=== PATIENT | male | born 1960 | race Caucasian/White ===

== ENCOUNTER 2017-03-09 02:40 | Inpatient (IN) | payer OTHER ==
[2017-03-09] MEDS ORDERED: NS 1,000 ML IV ONE ×3 (02:46→17:30)
[2017-03-09] MEDS ORDERED: ONDANSETRON 4 MG/2 ML VIAL IVP ONE (02:46)
--- NOTE | 2017-03-09 02:49 | EDPHY ---
H & P HPI/ROS: HPI CHIEF COMPLAINT: Left flank pain, nausea, vomiting HISTORY OF PRESENT ILLNESS: This patient very pleasant 56-year-old male, significant past medical history for multiple myeloma, BPH, kidney stones, is visiting from out of town from [place] he staying at a local hotel, he presents emergency room with acute onset of left flank pain around 10:00 p.m. last night. Sharp stabbing radiates into his left abdomen. Denies cyclic pain or trouble urinating. Has not seen blood in his urine. He noticed some pain yesterday but not severe. This pain came very intense this evening had to call 911 arrived to the emergency room. Currently he received 100 mcg IV fentanyl in route, 4 Zofran is feeling better. Past Medical History: BPH, multiple myeloma, kidney stones, hypertension Past Surgical History: No recent surgical history Social History: Smokes marijuana, denies other illicit drugs, denies alcohol or tobacco Family History: Noncontributory ROS REVIEW OF SYSTEMS: A comprehensive 10 point review of systems is otherwise negative aside from elements mentioned in the history of present illness. Exam Constitutional appears well nontoxic, triage nursing summary reviewed, vital signs reviewed, awake/alert. Eyes normal conjunctivae and sclera, EOMI, PERRLA. HENT normal inspection, atraumatic, moist mucus membranes, no epistaxis, neck supple/ no meningismus, no raccoon eyes. Respiratory clear to auscultation bilaterally, normal breath sounds, no respiratory distress, no wheezing. Cardiovascular rate normal, regular rhythm, no murmur, no edema, distal pulses normal. Gastrointestinal soft, non-tender, no rebound, no guarding, normal bowel sounds, no distension, no pulsatile mass. Genitourinary no CVA tenderness. Musculoskeletal no midline vertebral tenderness, full range of motion, no calf swelling, no tenderness of extremities, no meningismus, good pulses, neurovascularly intact. Skin pink, warm, & dry, no rash, skin atraumatic. Neurologic awake, alert and oriented x 3, AAOx3, moves all 4 extremities equally, motor intact, sensory intact, CN II-XII intact, normal cerebellar, normal vision, normal speech. Psychiatric normal mood/affect. Heme/Lymph/Immune no lymphadenopathy. Differential diagnosis includes but is not limited to and in no particular order : Bowel obstruction, appendicitis, gallbladder disease, diverticulitis, colitis , enteritis, perforated viscus, gastritis, GERD, esophagitis, urinary tract infection, pyelonephritis, kidney stones Medical Decision Making: Plan for this patient IV establishment, IV fluid bolus 1 L normal saline, IV Zofran for nausea, IV fentanyl as needed for pain control, urinalysis, abdominal blood work, CT abdomen pelvis without contrast to help delineate left severe flank pain and evaluate for kidney stone. Re-evaluation: CT scan of the abdomen pelvis without IV contrast. The results of the study are shows extensive amount of kidney stones, he has up to 15 stones in his bladder numerous sizes, he also has 6 mm proximal left ureteral stone with mild obstructive uropathy. Additionally this patient has pulmonary nodules need outpatient follow-up through his primary care doctor I have notified him of this. The study was read by Dr. Elias Barney I viewed the images myself on the PACS system. 0320AM: Upon review of this patient's blood work this patient's creatinine is 3.9 with a BUN over 50. I did review this blood study with the patient. His normal creatinine is in 1.7 range. Due to this acute kidney injury and kidney stone left-sided 6 mm mild ureter obstruction. Patient need to be admitted the hospital for hydration. FINAL DIAGNOSIS, FLANK PAIN FROM KIDNEY STONES, MULTIPLE KIDNEY STONES, HYDROURETER, ACUTE KIDNEY INJURY, PULMONARY NODULES. DR. LIM HAS ACCEPTED THE ADMISSION FOR THIS PATIENT Source: Patient, EMS Constitutional: Initial Vital Signs Temperature (C) 36.7 C 03/09/17 02:53 Heart Rate 79 03/09/17 02:53 Respiratory Rate 16 03/09/17 02:53 Blood Pressure 184/101 H 03/09/17 02:53 O2 Sat (%) 97 03/09/17 02:53 O2 Delivery Mode Room Air O2 (L/minute) 2 Allergies/Adverse Reactions: No Known Allergies Allergy (Unverified 03/09/17 02:53) Home Medications: Medication Instructions Recorded Amlodipine Besylate 03/09/17 Aspirin 03/09/17 Ezetimibe 03/09/17 Hydrocodone/APAP 5/325 [[place] 1 - 2 tab PO Q4H PRN #14 tab 03/09/17 5/325] Icosapent Ethyl 03/09/17 Metoprolol Tartrate 03/09/17 Ondansetron HCl [Zofran] 4 mg PO Q4-6PRN PRN #10 tablet 03/09/17 Sertraline HCl 03/09/17 Tadalafil 03/09/17 Tamsulosin HCl [Flomax] 0.4 mg PO DAILY #10 cap 03/09/17 Valacyclovir 03/09/17 Medical Decision Making - Data Points Laboratory Results: Laboratory Results 03/09/17 02:30 03/09/17 02:30 03/09/17 03/09/17 03/09/17 03:00 02:50 02:30 WBC RBC Hgb Hct MCV MCH MCHC RDW Plt Count MPV Neut % (Auto) Lymph % (Auto) Placer % (Auto) Eos % (Auto) Baso % (Auto) Nucleat RBC Rel Count Absolute Neuts (auto) Absolute Lymphs (auto) Absolute Monos (auto) Absolute Eos (auto) Absolute Basos (auto) Absolute Nucleated RBC Immature Gran % Immature Gran # PT INR APTT VBG Lactic Acid 1.1 mmol/L mmol/L (0.7-2.1) Sodium 137 mEq/L mEq/L (134-144) Potassium 4.5 mEq/L mEq/L (3.5-5.2) Chloride 101 mEq/L mEq/L (97-110) Carbon Dioxide 23 mEq/l mEq/l (22-31) Anion Gap 13 mEq/L mEq/L (8-16) BUN 56 mg/dL H mg/dL (7-23) Creatinine 3.9 mg/dL H mg/dL (0.7-1.3) Estimated GFR 16 Glucose 144 mg/dL H mg/dL (70-100) Calcium 10.0 mg/dL mg/dL (8.5-10.4) Total Bilirubin 1.3 mg/dL mg/dL (0.1-1.4) Conjugated Bilirubin 0.5 mg/dL mg/dL (0.0-0.5) Unconjugated Bilirubin 0.8 mg/dL mg/dL (0.0-1.1) AST 27 IU/L IU/L (17-59) ALT 32 IU/L IU/L (21-72) Alkaline Phosphatase 94 IU/L IU/L (38-126) Total Protein 7.4 g/dL g/dL (6.3-8.2) Albumin 4.7 g/dL g/dL (3.5-5.0) Lipase 317.0 IU/L H IU/L (23-300) Urine Color PALE YELLOW Urine Appearance CLEAR Urine pH 6.0 (5.0-7.5) Ur Specific [place] 1.010 (1.002-1.030) Urine Protein 3+ H (NEGATIVE) Urine Ketones TRACE H (NEGATIVE) Urine Blood 1+ H (NEGATIVE) Urine Nitrate NEGATIVE (NEGATIVE) Urine Bilirubin NEGATIVE (NEGATIVE) Urine Urobilinogen NEGATIVE EU EU (0.2-1.0) Ur Leukocyte Esterase NEGATIVE (NEGATIVE) Urine RBC 3-5 /hpf H /hpf (0-3) Urine WBC 1-3 /hpf /hpf (0-3) Ur Epithelial Cells Not Reported Urine Bacteria TRACE /hpf H /hpf (NONE SEEN) Urine Mucus TRACE /lpf /lpf (NONE-1+) Urine Glucose 1+ H (NEGATIVE) 03/09/17 03/09/17 02:30 02:30 WBC 13.02 10^3/uL H 10^3/uL (3.80-9.50) RBC 5.79 10^6/uL 10^6/uL (4.40-6.38) Hgb 17.6 g/dL H g/dL (13.7-17.5) Hct 48.8 % % (40.0-51.0) MCV 84.3 fL fL (81.5-99.8) MCH 30.4 pg pg (27.9-34.1) MCHC 36.1 g/dL g/dL (32.4-36.7) RDW 13.6 % % (11.5-15.2) Plt Count 126 10^3/uL L 10^3/uL (150-400) MPV 10.1 fL fL (8.7-11.7) Neut % (Auto) 85.5 % H % (39.3-74.2) Lymph % (Auto) 9.6 % L % (15.0-45.0) Placer % (Auto) 3.9 % L % (4.5-13.0) Eos % (Auto) 0.2 % L % (0.6-7.6) Baso % (Auto) 0.3 % % (0.3-1.7) Nucleat RBC Rel Count 0.0 % % (0.0-0.2) Absolute Neuts (auto) 11.12 10^3/uL H 10^3/uL (1.70-6.50) Absolute Lymphs (auto) 1.25 10^3/uL 10^3/uL (1.00-3.00) Absolute Monos (auto) 0.51 10^3/uL 10^3/uL (0.30-0.80) Absolute Eos (auto) 0.03 10^3/uL 10^3/uL (0.03-0.40) Absolute Basos (auto) 0.04 10^3/uL 10^3/uL (0.02-0.10) Absolute Nucleated RBC 0.00 10^3/uL 10^3/uL (0-0.01) Immature Gran % 0.5 % % (0.0-1.1) Immature Gran # 0.07 10^3/uL 10^3/uL (0.00-0.10) PT 13.5 SEC SEC (12.0-15.0) INR 1.04 (0.83-1.16) APTT 24.4 SEC SEC (23.0-38.0) VBG Lactic Acid Sodium Potassium Chloride Carbon Dioxide Anion Gap BUN Creatinine Estimated GFR Glucose Calcium Total Bilirubin Conjugated Bilirubin Unconjugated Bilirubin AST ALT Alkaline Phosphatase Total Protein Albumin Lipase Urine Color Urine Appearance Urine pH Ur Specific [place] Urine Protein Urine Ketones Urine Blood Urine Nitrate Urine Bilirubin Urine Urobilinogen Ur Leukocyte Esterase Urine RBC Urine WBC Ur Epithelial Cells Urine Bacteria Urine Mucus Urine Glucose Medications Given: Discontinued Medications Fentanyl (Sublimaze) 50 mcg IVP EDNOW ONE Stop: 03/09/17 03:05 Last Admin: 03/09/17 03:10 Dose: 50 mcg Sodium Chloride (Ns) 1,000 mls @ 0 mls/hr IV ONCE ONE; Wide Open PRN Reason: Protocol Stop: 03/09/17 02:47 Last Admin: 03/09/17 03:04 Dose: 1,000 mls Departure - Departure Disposition: [facility] Acute Clinical Impression: Kidney stones, Pulmonary nodules Condition: Good Instructions: Kidney Stones (ED), Renal Colic (ED), Flank Pain (ED), Pulmonary Nodules (ED) Additional Instructions: 1. You have a 6 mm left-sided kidney stone. 2. You have multiple kidney stones in your bladder. 3. You have pulmonary nodules that need to be followed up by your primary care doctor. 4. I do recommend that you follow up with Urology. 5. Make sure to drink lots of fluids stay well-hydrated. 6. Return emergency room if you have worsening pain, vomiting questions or concerns. Referrals: Patient,NotPresent [Primary Care Provider] - As per Instructions Prescriptions: Hydrocodone/APAP 5/325 [[place] 5/325] 1 - 2 tab PO Q4H PRN #14 tab PRN Reason: Pain, Moderate Ondansetron HCl [Zofran] 4 mg PO Q4-6PRN PRN #10 tablet PRN Reason: Nausea/Vomiting, Use 1st Tamsulosin HCl [Flomax] 0.4 mg PO DAILY #10 cap
[2017-03-09 03:04] LABS: COLOR PALE YELLOW; LEUKOCYTE ESTERASE,URINE NEGATIVE (NEGATIVE); NITRITE,URINE NEGATIVE (NEGATIVE)
[2017-03-09] MEDS ORDERED: fentaNYL 100 MCG/2 ML INJ IVP ONE (03:04)
[2017-03-09] MEDS ORDERED: fentaNYL 100 MCG/2 ML INJ ONE (03:05)
[2017-03-09 03:06] LABS: BACTERIA TRACE /hpf (NONE SEEN); MUCUS TRACE /lpf (NONE-1+)
[2017-03-09 03:08] LABS: % IMMATURE GRANULYOCYTES 0.5 % (0.0-1.1); ABSOLUTE IMMATURE GRANULOCYTES 0.07 10^3/uL (0.00-0.10); ADD DIFF? NO; ADD MORPH? NO; ADD SCAN? NO; ATYPICAL LYMPHOCYTE FLAG 0 (0-99); FRAGMENT RBC FLAG 0 (0-99); HEMATOCRIT 48.8 % (40.0-51.0); HEMOGLOBIN 17.6 g/dL (13.7-17.5); LEFT SHIFT FLG 0 (0-99); LIPEMIA HEMOLYSIS FLAG 90 (0-99); MEAN CELL HEMOGLOBIN 30.4 pg (27.9-34.1); MEAN CELL HEMOGLOBIN CONCENTR. 36.1 g/dL (32.4-36.7); MEAN CELL VOLUME 84.3 fL (81.5-99.8); MEAN PLATELET VOLUME 10.1 fL (8.7-11.7); PLATELET CLUMPS FLAG 0 (0-99); PLATELET COUNT 126 10^3/uL (150-400); RED BLOOD CELL COUNT 5.79 10^6/uL (4.40-6.38); RED CELL DISTRIBUTION WIDTH 13.6 % (11.5-15.2)
[2017-03-09 03:14] LABS: ALANINE AMINOTRANSFERASE 32 IU/L (21-72); ALBUMIN 4.7 g/dL (3.5-5.0); ALKALINE PHOSPHATASE 94 IU/L (38-126); ANION GAP 13 mEq/L (8-16); ASPARTATE AMINOTRANSFERASE 27 IU/L (17-59); BILIRUBIN,TOTAL 1.3 mg/dL (0.1-1.4); BILIRUBIN-CONJUGATED 0.5 mg/dL (0.0-0.5); BILIRUBIN-UNCONJUGATED 0.8 mg/dL (0.0-1.1); CARBON DIOXIDE 23 mEq/l (22-31); CHLORIDE 101 mEq/L (97-110); CREATININE 3.9 mg/dL (0.7-1.3); GLOMERULAR FILTRATION RATE 16; GLUCOSE 144 mg/dL (70-100); POTASSIUM 4.5 mEq/L (3.5-5.2); SODIUM 137 mEq/L (134-144); TOTAL PROTEIN 7.4 g/dL (6.3-8.2)
[2017-03-09 03:17] LABS: INR 1.04 (0.83-1.16); PROTIME(PATIENT) 13.5 SEC (12.0-15.0)
[2017-03-09 03:18] LABS: APTT 24.4 SEC (23.0-38.0)
[2017-03-09] MEDS ORDERED: HYDROmorphONE/DILAUDID 1 MG/ML SYR IVP ONE (03:42)
[2017-03-09] MEDS ORDERED: HYDROmorphONE/DILAUDID 1 MG/ML SYR ONE (03:44)
[2017-03-09] MEDS ORDERED: ONDANSETRON DISINTEGRATING 4 MG TAB PO PRN (05:08)
[2017-03-09] MEDS ORDERED: ONDANSETRON 4 MG/2 ML VIAL IVP PRN (05:08)
[2017-03-09] MEDS ORDERED: NALOXONE HCL 0.4 MG/ML INJ IVP PRN (05:10)
[2017-03-09] MEDS: oxyCODONE IR 5 MG TAB PO PRN ×3 (05:39→19:12)
[2017-03-09] MEDS: NS 1,000 ML IV SCH ×3 (05:40→20:10)
[2017-03-09 06:47] LABS: HEMATOCRIT 44.3 % (40.0-51.0); HEMOGLOBIN 16.1 g/dL (13.7-17.5); MEAN CELL HEMOGLOBIN 30.6 pg (27.9-34.1); MEAN CELL HEMOGLOBIN CONCENTR. 36.3 g/dL (32.4-36.7); MEAN CELL VOLUME 84.1 fL (81.5-99.8); RED BLOOD CELL COUNT 5.27 10^6/uL (4.40-6.38); RED CELL DISTRIBUTION WIDTH 13.4 % (11.5-15.2)
[2017-03-09 06:48] LABS: % IMMATURE GRANULYOCYTES 0.5 % (0.0-1.1); ABSOLUTE IMMATURE GRANULOCYTES 0.06 10^3/uL (0.00-0.10); ADD DIFF? NO; ADD MORPH? NO; ADD SCAN? NO; ATYPICAL LYMPHOCYTE FLAG 10 (0-99); FRAGMENT RBC FLAG 0 (0-99); LEFT SHIFT FLG 0 (0-99); LIPEMIA HEMOLYSIS FLAG 90 (0-99); MEAN PLATELET VOLUME 9.7 fL (8.7-11.7); PLATELET CLUMPS FLAG 0 (0-99); PLATELET COUNT 111 10^3/uL (150-400)
[2017-03-09] MEDS: ACETAMINOPHEN 325 MG TAB PO PRN (06:50)
[2017-03-09] MEDS: HEPARIN 5,000 UNIT/0.5 ML SYR SC SCH ×2 (07:17→13:01)
[2017-03-09 07:20] LABS: ANION GAP 12 mEq/L (8-16); CALCIUM 9.1 mg/dL (8.5-10.4); CARBON DIOXIDE 18 mEq/l (22-31); CHLORIDE 108 mEq/L (97-110); CREATININE 3.5 mg/dL (0.7-1.3); GLOMERULAR FILTRATION RATE 18; GLUCOSE 136 mg/dL (70-100); POTASSIUM 4.7 mEq/L (3.5-5.2); SODIUM 138 mEq/L (134-144)
[2017-03-09] MEDS: HYDROmorphONE/DILAUDID 6 MG/30 ML PCA IV PRN (07:34)
--- NOTE | 2017-03-09 07:58 | GHP ---
[f rep st] HISTORY AND PHYSICAL DATE OF ADMISSION: 03/09/2017 CHIEF COMPLAINT: Left flank pain. HISTORY OF PRESENT ILLNESS: This is a 56-year-old male who has a history of multiple myeloma in rem ission, as well as previous nephrolithiasis. He lives in [place] and comes to [place] [facility] for work, and yesterday developed sudden onset of left flank pain radiating to his belly along wi th nausea and vomiting. He has not had any fevers or chills. This feels like previous kidney stone s. He denies any chest pain, shortness of breath. REVIEW OF SYSTEMS: A 10-point review of systems was obtained, other than stated above, was negative . PAST MEDICAL HISTORY: 1. Multiple myeloma in remission. 2. Previous nephrolithiasis which started after myeloma diagnosis. 3. Chronic kidney disease with baseline creatinine about 1.5 to 1.8. 4. Hypertension. 5. Hyperlipidemia. 6. BPH. MEDICATIONS: Reviewed. SOCIAL HISTORY: No smoking. Does vaporize some marijuana though. No alcohol. FAMILY HISTORY: Reviewed and noncontributory. PHYSICAL EXAMINATION: VITAL SIGNS: Afebrile, blood pressure is 167/97, heart rate 72, oxygen satur ation 92% on room air. GENERAL: The patient is well developed, no apparent distress. HEENT: Alana cteric sclerae. Extraocular muscles are intact. Moist mucous membranes. NECK: Supple. No thyrom egaly. LUNGS: Good effort. Clear to auscultation bilaterally. CARDIOVASCULAR: Regular rate and rhythm. No murmurs, gallops. ABDOMEN: Positive bowel sounds. Soft. Some mild left CVA tendernes s. No abdominal tenderness, rebound, or guarding. EXTREMITIES: No clubbing, cyanosis, or edema. SKIN: Without rash, dry, intact. NEUROLOGICAL: Alert and oriented x3. Moving all 4 extremities e qually. PSYCH: Normal mood and affect. LABORATORIES: White blood cell count 12, hemoglobin is 126, creatinine 3.9. CT scan of the abdomen and pelvis shows multiple kidney stones with 3 proximal left ureteral stones up to 6 mm with modera te obstructive uropathy and multiple bladder calculi. ASSESSMENT: This is a 56-year-old male presenting with kidney stones. 1. Nephrolithiasis with urinary obstruction. These stones should be small enough to pass. We will continue with IV fluids and pain control at this point. There is no evidence of infection. 2. Acute on chronic kidney disease. Could be due to the obstructive uropathy and dehydrated from v omiting. We will give IV fluids and monitor creatinine. 3. Hypertension. We will continue his medications when med reconciliation is done. 4. History of multiple myeloma. Apparently this is in remission. Calcium is normal on chemistry. There is significant protein in his urine. 5. Thrombocytopenia. Suspect this is due to therapy for myeloma. We will monitor. 6. Deep vein thrombosis prophylaxis. We will start heparin. 7. Admission. Patient will be admitted under full admission status. Case discussed with ER sylvain delvalle. CT scan personally reviewed and interpreted. /[id number]/MODL
--- NOTE | 2017-03-09 15:24 | HOSPPROG ---
Hospitalist Progress Note Assessment/Plan: Nephrolithiasis with obstructive uropathy - 3 proximal left ureteral stones with moderate hydro and acute renal failure, passing some fragments. No e/o infection. -Urology consulted, pt wishes to have lithotripsy, doesn't want to risk infection -NPO, Dr. Montes to see today -Stone analysis sent RITO / CKD - Baseline Cr 1.7, was 3.9 on arrival, now 3.5. May be some pre- renal component with N/V preceding admission vs obstructive uropathy. -Cont IVF's, trend Cr Hypertension - BP's elevated, hasn't received home meds yet. Pain likely contributing to elevated BP's. -med rec completed, cont home dose of amlodipine and metoprolol Hyperlipidemia - holding Zetia while NPO H/O multiple myelom - in remission Full code DVT PPLX - Hold heparin pending possible procedure Dispo - cont inpt Subjective: Pt continues to have left flank and lower abdominal pain. No fevers. He wants lithotripsy. Doesn't want to wait for signs of infection. He is however passing some stone fragments. No more N/V. Little intake today, last ate scrambled eggs and toast at 0700. Objective: Vital Signs Temp Pulse Resp BP Pulse Ox 36.7 C 74 18 175/97 H 97 03/09/17 14:04 03/09/17 14:04 03/09/17 14:04 03/09/17 14:04 03/09/17 14:04 Laboratory Results 03/09/17 06:35 03/09/17 06:35 03/08/17 03/09/17 03/10/17 05:59 05:59 05:59 Intake Total 2000 800 Output Total 200 1450 Balance 1800 -650 PT 13.5 SEC (12.0-15.0) 03/09/17 02:30 INR 1.04 (0.83-1.16) 03/09/17 02:30 - Physical Exam Constitutional: no apparent distress Eyes: PERRL Ears, Nose, Mouth, Throat: moist mucous membranes Cardiovascular: regular rate and rhythym Respiratory: no respiratory distress, clear to auscultation Gastrointestinal: normoactive bowel sounds, other (soft, nd, mild suprapubic TTP , no r/r/g, +BS) Genitourinary: other (no CVA tenderness) Musculoskeletal: full muscle strength Neurologic: AAOx3 Psychiatric: interacting appropriately ICD10 Worksheet Patient Problems: Problems Problem Status Onset Kidney stones Acute Pulmonary nodules Acute
[2017-03-09] MEDS: SERTRALINE HCL 50 MG TAB PO SCH ×2 (15:45→15:51)
[2017-03-09] MEDS: METOPROLOL SUCCINATE XR 50 MG TAB PO SCH (15:45)
[2017-03-09] MEDS ORDERED: IOPAMIDOL (ISOVUE-300) 150 ML BTL ONE (17:10)
[2017-03-09] MEDS ORDERED: IOPAMIDOL (ISOVUE-M 300) 15 ML VIAL ONE (17:40)
[2017-03-09] MEDS ORDERED: MIDAZOLAM 2 MG/2 ML VIAL IVP ONE (17:47)
--- NOTE | 2017-03-09 17:47 | PDANEPAE ---
ANE Past Medical History - Cardiovascular History Hx Hypertension: Yes - Pulmonary History Hx Oxygen in Use at Home: No Hx Sleep Apnea: No Sleep Apnea Screening Result - Last Documented: Positive - Endocrine History Hx Diabetes: No - Renal History Hx Renal Disorders: Yes Renal History Comment: acute on chronic kidney dz - Cancer History Cancer History Comment: multiple myeloma - Chronic Pain History Chronic Pain: No ANE Review of Systems - Exercise capacity Exercise capacity: >=4 METS ANE Patient History - Allergies Allergies/Adverse Reactions: No Known Allergies Allergy (Unverified 03/09/17 02:53) - Home Medications Home Medications: Aspirin [Aspirin 81mg (*)] 81 mg PO DAILY 03/09/17 [Last Taken 03/08/17] Ezetimibe [Zetia 10 MG (*)] 10 mg PO DAILY 03/09/17 [Last Taken Unknown] Icosapent Ethyl [Vascepa] 2 gm PO BID 03/09/17 [Last Taken 03/08/17 09:00] Metoprolol Succinate Xr [Toprol Xl 50 mg (*)] 50 mg PO DAILY 03/09/17 [Last Taken 03/08/17] Sertraline HCl [Zoloft 50mg (*)] 150 mg PO DAILY 03/09/17 [Last Taken 03/08/17] Tadalafil [Cialis] 5 mg PO DAILY 03/09/17 [Last Taken 03/08/17] amLODIPine BESYLATE [Norvasc 10 mg (*)] 10 mg PO DAILY 03/09/17 [Last Taken ] valACYclovir [Valtrex (*)] 500 mg PO DAILY 03/09/17 [Last Taken 03/08/17] - NPO status NPO Since - Liquids (Date): 03/09/17 NPO Since - Liquids (Time): 14:30 NPO Since - Solids (Date): 03/09/17 NPO Since - Solids (Time): 13:00 - Smoking Hx Smoking Status: Never smoked ANE Labs/Vital Signs - Labs Result Diagrams: 03/10/17 04:58 03/10/17 04:58 - Vital Signs Blood Pressure: 168/94 Heart Rate: 80 Respiratory Rate: 13 O2 Sat (%): 96 Height: 176.53 cm Weight: 89.766 kg ANE Anesthesia Plan Urgent/Emergent Case: Harika bueno completed preop but documented later for safe timely pt care (case canceled for NPO)
[2017-03-09] MEDS ORDERED: MIDAZOLAM 2 MG/2 ML VIAL ONE (17:49)
[2017-03-09] MEDS ORDERED: CALCIUM CARBONATE 500 MG CHEWABLE TAB PO PRN (19:40)
--- NOTE | 2017-03-10 00:22 | SOAPPROG ---
[facility] Progress Note Assessment/Plan: Assessment: 1. Left ureteral calculi 2. Acute on chronic renal failure 3. Bladder calculi 4. BPH Plan: Because pt. was not NPO until mid-afternoon on , surgery will be postponed until Monday. Continue medical managment until then. Objective: Vital Signs Temp Pulse Resp BP Pulse Ox 36.6 C 81 18 106/74 94 03/09/17 19:39 03/09/17 22:00 03/09/17 19:39 03/09/17 22:00 03/09/17 22:00 Laboratory Results 03/09/17 06:35 03/09/17 06:35 03/08/17 03/09/17 03/10/17 05:59 05:59 05:59 Intake Total 1999 2812.6 Output Total 200 0 Balance 1800 762.6 PT 13.5 SEC (12.0-15.0) 03/09/17 02:30 INR 1.04 (0.83-1.16) 03/09/17 02:30 ICD10 Worksheet Patient Problems: Problems Problem Status Onset Kidney stones Acute Pulmonary nodules Acute
[2017-03-10] MEDS: HEPARIN 5,000 UNIT/0.5 ML SYR SC SCH ×4 (00:31→23:21)
[2017-03-10] MEDS: NS 1,000 ML IV SCH ×2 (02:56→09:27)
[2017-03-10] MEDS: HYDROmorphONE/DILAUDID 6 MG/30 ML PCA IV PRN (03:22)
[2017-03-10 05:18] LABS: % IMMATURE GRANULYOCYTES 0.3 % (0.0-1.1); ABSOLUTE IMMATURE GRANULOCYTES 0.03 10^3/uL (0.00-0.10); ADD DIFF? NO; ADD MORPH? NO; ADD SCAN? NO; ATYPICAL LYMPHOCYTE FLAG 10 (0-99); FRAGMENT RBC FLAG 0 (0-99); HEMATOCRIT 42.5 % (40.0-51.0); HEMOGLOBIN 14.6 g/dL (13.7-17.5); LEFT SHIFT FLG 0 (0-99); LIPEMIA HEMOLYSIS FLAG 90 (0-99); MEAN CELL HEMOGLOBIN 29.7 pg (27.9-34.1); MEAN CELL HEMOGLOBIN CONCENTR. 34.4 g/dL (32.4-36.7); MEAN CELL VOLUME 86.4 fL (81.5-99.8); PLATELET CLUMPS FLAG 0 (0-99); PLATELET COUNT 127 10^3/uL (150-400); RED BLOOD CELL COUNT 4.92 10^6/uL (4.40-6.38); RED CELL DISTRIBUTION WIDTH 13.6 % (11.5-15.2)
[2017-03-10 05:28] LABS: ANION GAP 10 mEq/L (8-16); CALCIUM 8.9 mg/dL (8.5-10.4); CARBON DIOXIDE 23 mEq/l (22-31); CHLORIDE 107 mEq/L (97-110); CREATININE 3.4 mg/dL (0.7-1.3); GLOMERULAR FILTRATION RATE 19; GLUCOSE 103 mg/dL (70-100); POTASSIUM 4.3 mEq/L (3.5-5.2); SODIUM 140 mEq/L (134-144)
[2017-03-10] MEDS ORDERED: TAMSULOSIN HCL 0.4 MG CAP PO SCH (09:00)
[2017-03-10] MEDS: METOPROLOL SUCCINATE XR 50 MG TAB PO SCH (10:53)
[2017-03-10] MEDS: TAMSULOSIN HCL 0.4 MG CAP PO SCH (10:53)
[2017-03-10] MEDS: valACYclovir 500 MG TAB PO SCH (10:53)
--- NOTE | 2017-03-10 10:56 | GCON ---
[f rep st] CONSULTATION DATE OF CONSULTATION: 03/09/2017 REASON FOR CONSULTATION: Left flank pain. HISTORY OF PRESENT ILLNESS: This is a 56-year-old man who lives primarily in [place]. He commutes frequently to [place] for work. He had sudden onset of left flank pain. CT scan was performed which was personally reviewed. This reveals a 6 mm left proximal ureteral stone with some more proximal smaller fragments and with left ureteral dilation. The patient's creatinine has bumped from a baseline of 1.5-1.8 up into around 3.9. The CT scan also revealed multiple bladder stones. Also, significant prostate hypertrophy. The findings of the films were discussed at length with the patient. I spent approximately 1 hour reviewing films and discussing the case with the patient and his providers. A left ureteral stent insertion with subsequent treatment in [place] with lithotripsy was recommended. The patient was going to be cared for on the , but apparently ate chicken later in the day than what was appreciated and therefore the surgery will be postponed. I also discussed his prostate hypertrophy and the bladder stones and its probable indication that voiding dysfunction exists. PAST MEDICAL HISTORY: Multiple myeloma, in remission. Previous nephrolithiasis started after myeloma. Chronic kidney disease, hypertension, hyperlipidemia, prostate hypertrophy. SOCIAL HISTORY: As above. Some marijuana. No alcohol. PHYSICAL EXAM: GENERAL: This is a pleasant, somewhat anxious gentleman oriented with appropriate mood and affect. NECK: Supple. RESPIRATORY: Effort is unlabored. ABDOMEN: Minimally distended. EXTREMITIES: Nontender. LABORATORY: His white count is 12. Creatinine 3.9. CT scan as above. ASSESSMENT: Left proximal ureteral stones, renal insufficiency worsened, acute on chronic renal insufficiency, bladder stones, prostate hypertrophy. PLAN: Cystoscopy and stent insertion with lithotripsy subsequently. Further evaluation of voiding dysfunction is likely indicated. Again, greater than 60 minutes were spent in managing this patient. /[id number]/MODL MTDD
[2017-03-10] MEDS ORDERED: LR 1,000 ML IV ONE (11:31)
[2017-03-10] MEDS ORDERED: IOPAMIDOL (ISOVUE-M 300) 15 ML VIAL ONE ×2 (11:48→13:46)
[2017-03-10] MEDS ORDERED: LIDOCAINE 2% JELLY 20 ML (UROJECT) ONE (11:48)
--- NOTE | 2017-03-10 12:06 | PDANEPAE ---
ANE History of Present Illness 56 yo M w nephrolithiasis, here for ureteroscopy ANE Past Medical History - Cardiovascular History Hx Hypertension: Yes - Pulmonary History Hx Oxygen in Use at Home: No Hx Sleep Apnea: Yes Sleep Apnea Screening Result - Last Documented: Positive - Endocrine History Hx Diabetes: No - Renal History Hx Renal Disorders: Yes Renal History Comment: acute on chronic kidney dz - Cancer History Hx Cancer: Yes Cancer History Comment: multiple myeloma - Chronic Pain History Chronic Pain: No ANE Review of Systems - Exercise capacity Exercise capacity: >=4 METS - Systems Respiratory: Reports: cough Neurological: Reports: anxiety, depressed ANE Patient History - Allergies Allergies/Adverse Reactions: No Known Allergies Allergy (Unverified 03/09/17 02:53) - Home Medications Home medications: home medication list seen and reviewed Home Medications: Aspirin [Aspirin 81mg (*)] 81 mg PO DAILY 03/09/17 [Last Taken 03/08/17] Ezetimibe [Zetia 10 MG (*)] 10 mg PO DAILY 03/09/17 [Last Taken Unknown] Icosapent Ethyl [Vascepa] 2 gm PO BID 03/09/17 [Last Taken 03/08/17 09:00] Metoprolol Succinate Xr [Toprol Xl 50 mg (*)] 50 mg PO DAILY 03/09/17 [Last Taken 03/08/17] Sertraline HCl [Zoloft 50mg (*)] 150 mg PO DAILY 03/09/17 [Last Taken 03/08/17] Tadalafil [Cialis] 5 mg PO DAILY 03/09/17 [Last Taken 03/08/17] amLODIPine BESYLATE [Norvasc 10 mg (*)] 10 mg PO DAILY 03/09/17 [Last Taken ] valACYclovir [Valtrex (*)] 500 mg PO DAILY 03/09/17 [Last Taken 03/08/17] - NPO status NPO Since - Liquids (Date): 03/09/17 NPO Since - Liquids (Time): 00:00 NPO Since - Solids (Date): 03/09/17 NPO Since - Solids (Time): 00:00 - Anes Hx Anes Hx: no prior problems - Smoking Hx Smoking Status: Never smoked Marijuana use: Yes - Alcohol Use Alcohol Use: Occasionally - Family Anes Hx Family Anes Hx: none ANE Labs/Vital Signs - Labs Result Diagrams: 03/10/17 04:58 03/10/17 04:58 - Vital Signs Blood Pressure: 131/82 Heart Rate: 77 Respiratory Rate: 16 O2 Sat (%): 96 Height: 176.53 cm Weight: 89.766 kg ANE Physical Exam - Airway Neck exam: decreased ROM Mallampati Score: Class 3 Mouth exam: normal dental/mouth exam - Pulmonary Pulmonary: clear to auscultation - Cardiovascular Cardiovascular: regular rate and rhythym - ASA Status ASA Status: III ANE Anesthesia Plan Anesthesia Plan: general endotracheal anesthesia
[2017-03-10] MEDS ORDERED: fentaNYL 100 MCG/2 ML INJ ONE ×2 (12:12→15:31)
[2017-03-10] MEDS ORDERED: PROPOFOL 200 MG/20 ML VIAL ONE ×2 (12:12)
[2017-03-10] MEDS ORDERED: levOFLOXACIN 500 MG/DEXTROSE 100 ML IV ONE ×2 (12:44→13:00)
[2017-03-10] MEDS ORDERED: MIDAZOLAM 2 MG/2 ML VIAL IVP ONE (12:55)
[2017-03-10] MEDS ORDERED: MIDAZOLAM 2 MG/2 ML VIAL ONE (12:57)
[2017-03-10] MEDS ORDERED: METOPROLOL TARTRATE 5 MG/5 ML INJ ONE (13:46)
[2017-03-10] MEDS ORDERED: ROCURONIUM 50 MG/5 ML VIAL ONE ×2 (14:12)
[2017-03-10] MEDS ORDERED: LIDOCAINE 2% 5 ML SDV ONE (14:12)
--- NOTE | 2017-03-10 14:50 | POSTOPPROG ---
Post Op Note Date of Operation: 03/10/17 Surgeon: Trisha Brady (# [id number]) Anesthesia: LMA Pre-op Diagnosis: 1. Proximal left ureteral calculi 2. Large bladder calculi 3. Severe BPH Post-op Diagnosis: 1. Proximal left ureteral calculi 2. Large bladder calculi 3. Severe BPH Procedure: Cysto, left ureteroscopy w/ calculus litho, complex cystolitholapaxy Findings: See op note Inf/Abcess present in the surg proc area at time of surgery?: No EBL: Minimal Complications: None Specimen(s): Bladder calculus fragments Text Box - Additional Text Additional Text: To RR in stable condition. Continue CBI overnight and anticipate Hernández removal in AM. He may be discharged on Monday once he has adequately voiding following Hernández removal. He needs to FU either in my office, or w/ his urologist on the [facility], for left ureteral stent removal in about 2 weeks.
[2017-03-10] MEDS ORDERED: ACETAMINOPHEN 500 MG TAB PO PRN (15:01)
[2017-03-10] MEDS ORDERED: NALOXONE HCL 0.4 MG/ML INJ IVP PRN (15:01)
[2017-03-10] MEDS ORDERED: ONDANSETRON 4 MG/2 ML VIAL IVP PRN (15:01)
--- NOTE | 2017-03-10 15:05 | POSTANESTH ---
Post Anesthetic Evaluation Cardiovascular Status: Normal, Stable, Similar to Pre-Op Cond Respiratory Status: Normal, Stable, Tx Decrease in SpO2 (pt awoke coughing, copious mucous in ETT (likely 2/2 daily marijuana smoking), mildly decreased p02 , tx w/ facemask, sats>90) Level of Consciousness/Mental Status: Can Participate in Eval, Mildly Sleepy, Arousable Pain Control: Adequate, Prn Tx Ordered Nausea/Vomiting Control: Adequate, Prn Tx Ordered Complications Possibly Related to Anesthesia: None Noted
--- NOTE | 2017-03-10 15:11 | HOSPPROG ---
Hospitalist Progress Note Assessment/Plan: Nephrolithiasis with obstructive uropathy - 3 proximal left ureteral stones with moderate hydro and acute renal failure, passing some fragments. No e/o infection. -Urology consulted, pt to OR for stent and lithotripsy today -Stone analysis pending RITO / CKD - Baseline Cr 1.7, was 3.9 on arrival, now 3.4. May be some pre- renal component with N/V preceding admission vs obstructive uropathy. -Cont IVF's, trend Cr -Consider renal consult if not improving after stent / urologic intervention Hypertension - cont home meds Hyperlipidemia - holding Zetia while NPO H/O multiple myeloma - in remission Full code DVT PPLX - ROSALINDA Dispo - cont inpt Subjective: Pt in PACU, sleepy from anesthesia. No flank pain. No fevers. He feels tired, but notes pain improved. Objective: Vital Signs Temp Pulse Resp BP Pulse Ox 36.9 C 77 16 131/82 H 96 03/10/17 12:12 03/10/17 12:12 03/10/17 12:12 03/10/17 12:12 03/10/17 12:12 Laboratory Results 03/10/17 04:58 03/10/17 04:58 03/09/17 03/10/17 03/11/17 05:59 05:59 05:59 Intake Total 1999 4332.6 Output Total 200 2575 Balance 1800 1757.6 PT 13.5 SEC (12.0-15.0) 03/09/17 02:30 INR 1.04 (0.83-1.16) 03/09/17 02:30 - Physical Exam Constitutional: no apparent distress Eyes: PERRL Ears, Nose, Mouth, Throat: moist mucous membranes Cardiovascular: regular rate and rhythym Respiratory: no respiratory distress Gastrointestinal: normoactive bowel sounds, soft, non-tender abdomen Skin: warm Musculoskeletal: full muscle strength Neurologic: AAOx3 Psychiatric: interacting appropriately ICD10 Worksheet Patient Problems: Problems Problem Status Onset Kidney stones Acute Pulmonary nodules Acute
[2017-03-10] MEDS: fentaNYL 100 MCG/2 ML INJ IVP PRN ×2 (15:34→15:53)
--- NOTE | 2017-03-10 20:18 | GOP ---
[f rep st] OPERATIVE REPORT DATE OF OPERATION: 03/10/2017 SURGEON: Trisha Brady MD ANESTHESIA: General endotracheal. PREOPERATIVE DIAGNOSIS: 1. Symptomatic left proximal ureteral calculi. 2. Multiple bladder calculi, greater than 2 cm. 3. Severe benign prostatic hyperplasia. POSTOPERATIVE DIAGNOSIS: 1. Symptomatic left proximal ureteral calculi. 2. Multiple bladder calculi, greater than 2 cm. 3. Severe benign prostatic hyperplasia. PROCEDURE PERFORMED: 1. Cystourethroscopy, left retrograde pyelography. 2. Left ureteroscopy with holmium laser calculus lithotripsy. 3. Left ureteral stent placement (4.7-Moldovan Multi-Link). 4. Complex cystolitholapaxy with holmium laser. FINDINGS: 1. Sizeable left proximal ureteral calculus with 2 smaller more proximal calculi, dealt with as men tioned in the description of procedure. 2. Multiple bladder calculi, treated successfully with laser today. 1. Severe BPH with an extremely large median lobe encroaching onto the trigone. In my estimation, his prostate would benefit from eventual transurethral resection and/or vaporization. 3. SPECIMENS: Bladder calculi fragments. ESTIMATED BLOOD LOSS: Less than 20 cc. INDICATIONS: This gentleman was admitted with symptoms related to a sizable left proximal ureteral calculus with 2 other smaller calculi seen on CT scan. He was also found on CT scan to have multipl e large bladder calculi along with severe BPH. It was recommended that he undergo intraoperative ma nagement of the left ureteral calculi and, if possible, deal with the bladder calculi simultaneously . The indications for the procedures as well as potential risks and complications, were discussed w ith the patient preoperatively. He appeared to understand, his questions were answered, and he wish ed to proceed. Written informed surgical consent was thereafter obtained. DESCRIPTION OF PROCEDURE: The patient was brought to the operating room and administered general en dotracheal anesthesia. He was carefully placed in the dorsal lithotomy position on the cystoscopic table. The genital area was sterilely prepped with Betadine scrub and paint, then draped in the usu al sterile fashion. Cystoscopy was performed with the 30-degree and 70-degree lens initially throug h a 22-Moldovan sheath. Anterior urethra revealed some very slight narrowing of the fossa navicularis , which did not require dilation. Remainder of the anterior urethra was unremarkable. Posterior ur ethra revealed severe circumferential BPH with a very large median lobe that was encroaching onto th e trigone. The mucosa of the median lobe was quite friable and bled easily with passage of the scop e into the bladder. The bladder was heavily trabeculated with several calculi dependently located. These calculi measured up to 2 cm each. The remainder of the bladder did not reveal any obvious tu mors. I then used a 5-Moldovan open-ended ureteral catheter to perform retrograde pyelography on the left si de. This revealed a sizable filling defect in the left proximal ureter between L3 and L4 with moder ate proximal hydronephrosis and hydroureter. This corresponded with the location of the ureteral ca lculus seen on preoperative CT scan. With the aid of a 5-Moldovan open-ended ureteral catheter, I was able to pass a 0.035-inch angle-tipped guidewire up the left ureter until it was seen within the ángel al collecting system fluoroscopically. A 10 cm balloon was then used to perform 2 sequential inflat ions and deflations of the entire length of the ureter distal to the ureteral calculus. This was pe rformed at 16 atmospheres for about 3 minutes on each occasion. The balloon dilator and cystoscope were then removed while keeping the guidewire in place. Semi-rigid ureteroscopy was performed along side the guidewire. The ureteroscope was carefully advanced up the ureter until the dominant distal calculus was seen in the proximal ureter at about L3. A 365-micron holmium laser fiber was used to fragment this calculus into minute pieces. There were at least 2 other much smaller calculi just p roximal to the dominant calculus and these were treated successfully in the same way using the 365-m icron holmium laser fiber. At the conclusion of this portion of the case, no calculus fragments wer e larger than 1 mm. The ureteral mucosa was fairly edematous in the location where the dominant denae culus was located, thereby indicating it had probably been there for quite some time. However, the calculus did not appear to be severely embedded within the mucosa of the ureter. Therefore, with an adequate time of stenting, the ureter should heal normally, in my opinion. The ureteroscope was re moved and the cystoscope was back-loaded over the guidewire. A 4.7-Moldovan Multi-Link hydrophilic ur eteral stent was passed over the guidewire until it was properly positioned as seen fluoroscopically in the kidney and cystoscopically in the bladder. The bladder was entered and drained of return at this point, which was bloody with some blood clots. The bladder was then irrigated free through th e cystoscope. I then turned my attention to dealing with the bladder calculi. A 550-micron holmium laser fiber, w ith the aid of a 5-Moldovan open-ended ureteral catheter, was used to fragment the bladder calculi int o minute pieces, which were extracted from the bladder using an [employer] evacuator as well as a 25-Fren ch cystoscopic sheath. At the conclusion of this portion of procedure, the bladder mucosa was intac t, all visible calculi had been extracted, and the bladder was free of clots at this point. The dis reyna end of the stent was noted to be in good position. The instruments were removed and a 20-Moldovan 3-way Hernández catheter inserted with approximately 20 cc of sterile fluid placed in the balloon. The catheter irrigated manually and the return was light pink. Continuous irrigation was started proph ylactically to facilitate healing from the prostatic fossa. The patient was then awakened, extubate d, transferred to his bed, then taken to the recovery room. He tolerated the procedure well overall . COMPLICATIONS: None. DISPOSITION: He was transferred to the recovery room in stable condition. He will be maintained on continuous bladder irrigation overnight with Hernández catheter removal tomorrow. He should be ready f or discharge any time thereafter, once he has demonstrated that he can adequately void. He will nee d to follow up with either his urologist in [place], or in my office in approximately 2 weeks for ureteral stent removal. /[id number]/MODL
[2017-03-11] MEDS: NS 1,000 ML IV SCH (00:49)
[2017-03-11 04:34] LABS: % IMMATURE GRANULYOCYTES 0.5 % (0.0-1.1); ABSOLUTE IMMATURE GRANULOCYTES 0.05 10^3/uL (0.00-0.10); ADD DIFF? NO; ADD MORPH? NO; ADD SCAN? NO; ATYPICAL LYMPHOCYTE FLAG 20 (0-99); FRAGMENT RBC FLAG 0 (0-99); HEMATOCRIT 40.2 % (40.0-51.0); LEFT SHIFT FLG 10 (0-99); LIPEMIA HEMOLYSIS FLAG 90 (0-99); MEAN CELL HEMOGLOBIN CONCENTR. 34.8 g/dL (32.4-36.7); MEAN CELL VOLUME 86.3 fL (81.5-99.8); PLATELET CLUMPS FLAG 0 (0-99); PLATELET COUNT 112 10^3/uL (150-400); RED BLOOD CELL COUNT 4.66 10^6/uL (4.40-6.38); RED CELL DISTRIBUTION WIDTH 13.3 % (11.5-15.2)
[2017-03-11] MEDS: HEPARIN 5,000 UNIT/0.5 ML SYR SC SCH ×2 (04:42→16:53)
[2017-03-11 04:52] LABS: ANION GAP 10 mEq/L (8-16); CALCIUM 9.3 mg/dL (8.5-10.4); CARBON DIOXIDE 22 mEq/l (22-31); CHLORIDE 109 mEq/L (97-110); CREATININE 2.6 mg/dL (0.7-1.3); GLOMERULAR FILTRATION RATE 26; GLUCOSE 119 mg/dL (70-100); POTASSIUM 4.3 mEq/L (3.5-5.2); SODIUM 141 mEq/L (134-144)
[2017-03-11] MEDS: SERTRALINE HCL 50 MG TAB PO SCH (08:52)
[2017-03-11] MEDS: TAMSULOSIN HCL 0.4 MG CAP PO SCH (08:52)
[2017-03-11] MEDS: METOPROLOL SUCCINATE XR 50 MG TAB PO SCH (08:54)
[2017-03-11] MEDS: valACYclovir 500 MG TAB PO SCH (08:55)
--- NOTE | 2017-03-11 12:33 | HOSPPROG ---
Hospitalist Progress Note Assessment/Plan: Nephrolithiasis with obstructive uropathy - S/P stent and lithotripsy. Feeling much better, though reporting flank pain with urination. RITO / CKD - Baseline Cr 1.7, was 3.9 on arrival, now 2.4. Improving after intervention for obstructive uropathy. -Cont to follow Hypertension - cont home meds Hyperlipidemia - resume home meds H/O multiple myeloma - in remission Full code DVT PPLX - ROSALINDA Dispo - cont inpt, likely home in am Subjective: Pt feels better, c/o flank pain with urination only. No fevers/ chills. No N/V. Objective: Vital Signs Temp Pulse Resp BP Pulse Ox 36.7 C 76 14 126/76 H 93 03/11/17 11:45 03/11/17 11:45 03/11/17 11:45 03/11/17 11:45 03/11/17 11:45 Laboratory Results 03/11/17 04:13 03/11/17 04:13 03/10/17 03/11/17 03/12/17 05:59 05:59 05:59 Intake Total 4332.6 1450 Output Total 2575 5200 550 Balance 1757.6 -3750 -550 PT 13.5 SEC (12.0-15.0) 03/09/17 02:30 INR 1.04 (0.83-1.16) 03/09/17 02:30 - Physical Exam Constitutional: no apparent distress Eyes: PERRL Ears, Nose, Mouth, Throat: moist mucous membranes Cardiovascular: regular rate and rhythym Respiratory: no respiratory distress, clear to auscultation Skin: warm Musculoskeletal: full muscle strength Neurologic: AAOx3 Psychiatric: interacting appropriately ICD10 Worksheet Patient Problems: Problems Problem Status Onset Kidney stones Acute Pulmonary nodules Acute
[2017-03-11] MEDS ORDERED: PHENAZOPYRIDINE HCL 100 MG TAB PO ONE ×2 (12:39)
[2017-03-11 13:03] LABS: COLOR YELLOW; LEUKOCYTE ESTERASE,URINE TRACE (NEGATIVE); NITRITE,URINE NEGATIVE (NEGATIVE)
[2017-03-11 13:08] LABS: BACTERIA TRACE /hpf (NONE SEEN); RBC,URINE 50-182 /hpf (0-3); WBC,URINE 15-25 /hpf (0-3)
[2017-03-11] MEDS: ACETAMINOPHEN 325 MG TAB PO PRN (17:51)
[2017-03-12 04:38] LABS: HEMATOCRIT 39.5 % (40.0-51.0); HEMOGLOBIN 14.1 g/dL (13.7-17.5); MEAN CELL HEMOGLOBIN 30.1 pg (27.9-34.1); MEAN CELL HEMOGLOBIN CONCENTR. 35.7 g/dL (32.4-36.7); MEAN CELL VOLUME 84.4 fL (81.5-99.8); RED BLOOD CELL COUNT 4.68 10^6/uL (4.40-6.38); RED CELL DISTRIBUTION WIDTH 13.2 % (11.5-15.2)
[2017-03-12 04:50] LABS: ANION GAP 10 mEq/L (8-16); CALCIUM 9.1 mg/dL (8.5-10.4); CARBON DIOXIDE 25 mEq/l (22-31); CHLORIDE 107 mEq/L (97-110); CREATININE 2.3 mg/dL (0.7-1.3); GLOMERULAR FILTRATION RATE 30; GLUCOSE 101 mg/dL (70-100); POTASSIUM 3.9 mEq/L (3.5-5.2); SODIUM 142 mEq/L (134-144)
[2017-03-12 07:54] VITALS: BP 166/93; PULSE 65; RESP 14; TEMP 98.8; O2SAT 91
[2017-03-12] MEDS ORDERED: EZETIMIBE 10 MG TAB PO SCH (09:00)
[2017-03-12] MEDS: SERTRALINE HCL 50 MG TAB PO SCH (09:13)
[2017-03-12] MEDS: TAMSULOSIN HCL 0.4 MG CAP PO SCH (09:13)
[2017-03-12] MEDS: METOPROLOL SUCCINATE XR 50 MG TAB PO SCH (09:13)
[2017-03-12] MEDS: valACYclovir 500 MG TAB PO SCH (09:13)
--- NOTE | 2017-03-12 11:12 | GDS ---
[f rep st] DISCHARGE SUMMARY DISCHARGE DIAGNOSES: 1. Obstructive uropathy secondary to nephrolithiasis. 2. Acute kidney injury in the setting of chronic kidney disease. 3. Benign prostatic hypertrophy. 4. Hypertension. 5. Hyperlipidemia. 6. History of multiple myeloma in remission. 7. Indeterminate lung nodules which will require followup CT scan in 6 months. 8. Splenomegaly. 9. Indeterminate renal lesions, consider followup CT renal mass protocol. CONSULTANTS: Dr. Hu Montes, Urology. IMAGING STUDIES/PROCEDURES: 1. Abdomen and pelvis CT March 09, 2017, showed 3 stones in the proximal left ureter measuring up to 6 mm with moderate obstructive uropathy; multiple bladder calcifications, the largest measuring 1 c m; indeterminate renal lesions, some of which are mildly hyperdense which could represent hemorrhagi c cysts. He may warrant outpatient CT renal mass protocol for further evaluation. Indeterminate bk ng nodules which warrant followup CT in 6 months, splenomegaly, fatty infiltration of the liver, and degenerative changes in the lumbar spine at L5-S1. 2. Cystourethroscopy with left retrograde pyelography, left calculus lithotripsy and left ureteral stent placement on March 09, 2017, performed by Dr. Liang Brady. This revealed multiple bladder calcu li and severe benign prostatic hypertrophy with an extremely large median lobe encroaching onto the trigone. Pathology on the urinary calculi was submitted for crystal analysis and is pending. HISTORY: For details, please see dictated history and physical dated March 09, 2017. In brief, this patient is a 56-year-old male with a history of multiple myeloma in remission, prior nephrolithiasi s and benign prostatic hypertrophy who presents to the hospital with sudden onset left flank pain as sociated with nausea and vomiting. He was found to have obstructive uropathy in the setting of prox imal left ureteral stones and was admitted to the hospital for further management. HOSPITAL COURSE: Patient was admitted to the medical-surgical unit. He received IV hydration. He was found to have acute kidney injury with a creatinine of 3.9 on arrival. His baseline creatinine is reportedly 1.7. His creatinine trended down with IV hydration, although this was likely hastened by his obstructive uropathy in the setting of kidney stones. Urology consult was obtained. He und erwent lithotripsy and stent placement as above. This resolved his flank pain. He was started on F justus, in addition to his Cialis, for his severe benign prostatic hypertrophy which is thought to be contributory factor to his presentation. Our urologist here recommends he eventually undergo surgi denae treatment for this. It is advised he follows up with his urologist back in [place] in 2-3 we eks for removal of the left ureteral stent. It is recommended he drink plenty of fluids to maintain hydration. He will take high dose Flomax 1.2 mg daily for 10 days followed by 8.8 mg daily in armen tion to his Cialis. Incidental findings during his hospitalization include pulmonary nodules that are described in the C T report above. This will need followup surveillance CT in 6 months. In addition, renal lesions we re noted which will also require followup imaging. He is instructed to return to his primary care john wilks for ongoing surveillance of these issues. DISPOSITION: Patient is discharged home in stable condition. FOLLOWUP: 1. He will follow up with his urologist in 2-3 weeks in [place]. 2. He will follow up with his primary care physician in [place] in 2-3 weeks. DISCHARGE MEDICATIONS: Please see [facility] for complete updated outpatient medication list. He adi l continue all prior medications as prescribed with the exception of aspirin which was held for 1 we ek given his recent procedure and microscopic hematuria. New medications on discharge include [place] 5/325 one to two tablets p.o. q.4 hours p.r.n., #14, no r efills; Zofran 4 mg p.o. q.4-6 hours p.r.n., #10, no refills; tamsulosin 0.4 mg p.o. daily, #10, no refills; and Flomax 0.8 mg p.o. daily, #60, no refills. /[id number]/MODL
[2017-03-13 18:10] LABS: SOURCE OF STONE URINE
[2017-03-13 18:11] LABS: NIDUS NOT OBSERVED
[2017-03-13 18:12] LABS: SOURCE OF STONE URETERAL
[2017-03-13 18:14] LABS: NIDUS NOT OBSERVED
[2017-03-15 17:33] LABS: SOURCE OF STONE BLADDER STONE
[2017-03-15 17:34] LABS: NIDUS NOT OBSERVED
== END 2017-03-12 12:49 | disposition home or self-care (01) | DRG 669 ==
LOC: F1N 04:00
PROVIDERS: ADMIT Internal Medicine; ATTEND Hospitalist
PROC: 0T778DZ Dilation of Left Ureter with Intraluminal Device, Via Natural or Artificial Opening Endoscopic (ICD-10-PCS; principal; 2017-03-10 12:00)
PROC: 0TC78ZZ Extirpation of Matter from Left Ureter, Via Natural or Artificial Opening Endoscopic (ICD-10-PCS; principal; 2017-03-10 12:00)
PROC: BT1F0ZZ Fluoroscopy of Left Kidney, Ureter and Bladder using High Osmolar Contrast (ICD-10-PCS; principal; 2017-03-10 12:00)
PROC: 0TCB8ZZ Extirpation of Matter from Bladder, Via Natural or Artificial Opening Endoscopic (ICD-10-PCS; principal; 2017-03-10 12:00)
DX: N13.2 Hydronephrosis with renal and ureteral calculous obstruction (principal); N21.0 Calculus in bladder; N17.9 Acute kidney failure, unspecified; N18.9 Chronic kidney disease, unspecified; N40.0 Benign prostatic hyperplasia without lower urinary tract symptoms; I12.9 Hypertensive chronic kidney disease with stage 1 through stage 4 chronic kidney disease, or unspecified chronic kidney disease; E78.5 Hyperlipidemia, unspecified; C90.01 Multiple myeloma in remission; R91.8 Other nonspecific abnormal finding of lung field; R16.1 Splenomegaly, not elsewhere classified; R93.421 Abnormal radiologic findings on diagnostic imaging of right kidney; R93.422 Abnormal radiologic findings on diagnostic imaging of left kidney; G47.33 Obstructive sleep apnea (adult) (pediatric)
CPT/HCPCS: 82365-90; 96374; C1726; C1758; C1769; C2625; J1170; J1956; J2250; J2704; J3010; Q9967